=== PATIENT | female | born 1975 | race Hispanic/Latino ===

== ENCOUNTER → 2018-11-14 | Day surgery (SDC) | payer OTHER ==
[~2018-11-14] MED LIST: AMBIEN5 MG PO; BACITRACIN 50,000 UNIT VIAL ONE; BUPIVACAINE HCL 0.5% INJ 30 ML VIAL INJ ONE; CEFAZOLIN SOD 2 GM/D5W 50ML 50 ML IV ONE; DEXAMETHASONE SOD PHOS INJ 4 MG/ML VIAL ONE; EPHEDRINE SULFATE INJ 50 MG/10 ML SYR ONE; FENTANYL CITRATE/PF 100MCG/2 ML INJ ONE; HYDROMORPHONE 2MG/ML 2 MG/ML ML ONE; KETOROLAC TROMETHAMINE 30 MG/ML VIAL ONE; LEVOTHYROXINE112 MCG PO; LIDOCAINE HCL 2% LOCAL INJ 5 ML SDV VIAL INJ ONE; MIDAZOLAM HCL 2 MG/2 ML VIAL ONE; MORPHINE SULFATE INJ 10 MG/ML ONE; NEOSTIGMINE 1 MG/ML 10ML VIAL ONE; ONDANSETRON HCL INJ 2MG/ML 2ML 2 MG/ML VIAL ONE; PROPOFOL IV EMULSION 10 MG/ML 20 ML VIAL ONE; SEVOFLURANE INHAL SOLN 250 ML PEN BTL ONE; SUMATRIPTAN INJ; SUMATRIPTAN20 MG INJ
--- OUTSIDE RECORDS SUMMARY | 2018-11-14 08:02 | XMS REPORT | Clinical Summary ---
Author Author [facility] Organization [facility] Address Unknown Phone Unavailable Care Team Providers Care Network Systems Operator Name Role Phone Kristen Mccoy DO PCP Allergies No Known Allergies Medications End Date Status Medication Sig Dispensed Refills Start Date Active levothyroxine (SYNTHROID, TAKE 1 TABLET 1 LEVOXYL) 200 mcg tablet BY MOUTH ON 7 EMPTY STOMACH IN THE MORNING MON-FRI, AND 2 TABLETS BY MOUTH ON SAT-SUN Active eletriptan (RELPAX) 40 MG TAKE 1 TABLET 6 tablet BY MOUTH ONCE 7 A DAY NEEDED Active Problems Problem Noted Date Prepatellar bursitis of right knee 08/10/2017 Patellar bursitis, right 08/09/2017 Acute pain of right knee 08/09/2017 Family History Medical History Relation Name Comments Cancer Father Heart disease Father Cancer Mother Relation Name Status Comments Father Mother Social History Date Tobacco Use Types Packs/Day Years Used Never Smoker Smokeless Tobacco: Never Used Sex Assigned at Date Recorded Not on file Industry Job Start Date Occupation Not on file Not on file Not on file Travel End Travel History Travel Start No recent travel history available. Last Filed Vital Signs Not on file Plan of Treatment Health Maintenance Due Date Last Done Comments CERVICAL CANCER SCREENING 1995 INFLUENZA VACCINE 02/22/2019 Results Not on fileafter 11/13/2017 Insurance Payer Benefit Subscriber ID Type Phone Address Plan / Group [facility] xxxxxxxxx HMO/PPO THCARE CHOICE/CHO ICE + Advance Directives Patient has advance care planning documents on file. For more information, roldan beckett contact: Porfirio Smalls [address] [place] [place] [address]
--- OUTSIDE RECORDS SUMMARY | 2018-11-14 08:03 | XMS REPORT | Summary of Care ---
Author Organization Unknown Address Unknown Phone Unavailable Encounter [facility] Encntr_yvonne(FIN) [id number] Date(s): 01/07/15 - 01/07/15 [facility] [address] [place] [address]- [phone] Discharge Disposition: Home Physician Attending: Tabitha Martinez MD Physician_Referring: Tabitha Martinez MD Vital Signs No data available for this section Problem List Condition Effective Dates Status Health Status Informant Hypothyroid(Confirme Resolved d) Stones common Resolved duct(Confirmed) Allergies, Adverse Reactions, Alerts Substance Reaction Severity Status NKDA Active Medications No data available for this section Results No data available for this section Immunizations No data available for this section Procedures Procedure Date Related Diagnosis Body Site Cholecystectomy Excision of calcaneal spur Social History Social History Type Response Smoking Status Never smoker; Exposure to Tobacco Smoke None; Cigarette Smoking Last 365 Days No; Reg Smoking Cessation Counseling No Assessment and Plan No data available for this section
--- OUTSIDE RECORDS SUMMARY | 2018-11-14 08:03 | XMS REPORT | Summary of Care ---
Author Author [facility] Organization [facility] Address Unknown Phone Unavailable Encounter JOCELINE Schaefer(DELANEY) [id number] Date(s): 02/18/15 - 02/19/15 [facility] [address] [place] [address]- Discharge Disposition: Home Attending Physician: Christiano Nieves MD Admitting Physician: Christiano Nieves MD Referring Physician: Christiano Nieves MD Vital Signs 1 2 3 Most recent to oldest [Reference Range]: 170.18 cm (02/18/15 2:30 PM) 170.18 cm (02/17/15 10:10 AM) Height 1 2 3 Most recent to oldest [Reference Range]: 98.2 DegF (02/19/15 12:28 PM) 98.7 DegF (02/19/15 7:50 AM) 98.5 DegF (02/19/15 3:42 AM) Temperature Oral [96.4-99.1 DegF] 1 2 3 Most recent to oldest [Reference Range]: 119/79 mmHg (02/19/15 12:28 PM) 121/81 mmHg (02/19/15 7:50 AM) 117/79 mmHg (02/19/15 3:42 AM) Blood Pressure [90-140/60-90 mmHg] 1 2 3 Most recent to oldest [Reference Range]: 16 BRMIN (02/19/15 12:28 PM) 14 BRMIN (02/19/15 9:11 AM) 14 BRMIN (02/19/15 7:50 AM) Respiratory Rate [14-20 BRMIN] 1 2 3 Most recent to oldest [Reference Range]: 99 bpm (02/19/15 12:28 PM) 103 bpm *HI* (02/19/15 7:50 AM) 109 bpm *HI* (02/19/15 3:42 AM) Peripheral Pulse Rate [60-100 bpm] 1 2 3 Most recent to oldest [Reference Range]: 137.273 kg (02/18/15 2:30 PM) 135.199 kg (02/17/15 10:10 AM) Weight 1 2 3 Most recent to oldest [Reference Range]: 47.4 m2 (02/18/15 2:30 PM) 46.68 m2 (02/17/15 10:10 AM) Body Mass Index Problem List Condition Effective Dates Status Health Status Informant Acid Active reflux(Confirmed) Apnea, Resolved sleep(Confirmed) HLD Resolved (hyperlipidemia)(Con firmed) Hypothyroid(Confirme Resolved d) Obesity(Confirmed) Active Sleep Active apnea(Confirmed) Stones common Resolved duct(Confirmed) Allergies, Adverse Reactions, Alerts Substance Reaction Severity Status NKDA Active Medications acetaminophen 650 mg, 1 supp, Route: IA, Drug form: SUPP, Q4H, Dosing Weight 135.199, kg, PRN For Temp > 101 F, Start date: 02/18/15 12:22:00, Duration: 30 day, Stop date: 03/20/15 12:21:00, for temp > 101.5 Notes: Max vdmtryjwdoplx=2529 mg/day (4 gm/day). (Same as: Tylenol) Start Date: 02/18/15 Stop Date: 02/19/15 Status: Discontinued acetaminophen-codeine 120 mg-12 mg/5 mL oral liquid 15 ml, PO, Q4H, PRN Pain, X 10 day, # 480 mL, 0 Refill(s) Start Date: 02/19/15 Stop Date: 03/01/15 Status: Ordered acetaminophen-hydrocodone 300 mg-10 mg/15 mL oral liquid 15 mL, Route: PO, Drug Form: SOLN, Dosing Weight 135.199, kg, Q4H, PRN Pain Scor e 4-6, Start date: 02/18/15 12:22:00, Duration: 30 day, Stop date: 03/20/15 12:2 1:00 Notes: Do not exceed 4gm/day of acetaminophen. (Same as: Zolvit) Start Date: 02/18/15 Stop Date: 02/19/15 Status: Discontinued Ancef 2 gm, Route: IVPB, ONCE, Dosing Weight 135.199, kg, Start date: 02/18/15 9:25:00 , Duration: 1 doses or times, Stop date: 02/18/15 9:25:00 Start Date: 02/18/15 Stop Date: 02/18/15 Status: Completed Ancef 1 gm, Route: IVPB, ONCE, Dosing Weight 135.199, kg, Start date: 02/18/15 11:40:0 0, Duration: 1 doses or times, Stop date: 02/18/15 11:40:00 Start Date: 02/18/15 Stop Date: 02/18/15 Status: Completed Ativan 1 mg, 0.5 mL, Route: IVP, Drug form: INJ, ONCE, Dosing Weight 137.273, kg, Start date: 02/19/15 0:33:00, Stop date: 02/19/15 0:33:00 Notes: (Same as: Ativan) Start Date: 02/19/15 Stop Date: 02/19/15 Status: Completed Carafate 1 g/10 mL oral suspension 1 gm=10 ml, PO, Before Meals & Bedtime, # 200 ml, 0 Refill(s) Start Date: 02/19/15 Status: Ordered ceFAZolin (SCIP) 2 gm, 100 mL, Route: IVPB, Drug form: INJ, ABXQ8H, Dosing Weight 135.199, kg, St art date: 02/18/15 19:00:00, Duration: 1 doses or times, Stop date: 02/18/15 19: 00:00 Notes: Same as: Ancef Start Date: 02/18/15 Stop Date: 02/18/15 Status: Completed famotidine 20 mg, 2 mL, Route: IVP, Drug form: INJ, Q12H, Dosing Weight 135.199, kg, Start date: 02/18/15 21:00:00, Duration: 30 day, Stop date: 03/20/15 9:00:00 Notes: (Same as: Pepcid)Can be dilute in 5-10cc NS IVP: Slow IV push over at le ast 2 minutes. Start Date: 02/18/15 Stop Date: 02/19/15 Status: Discontinued heparin 5000 units/mL injectable solution 5,000 unit, 1 mL, Route: SUB-Q, Drug form: INJ, ONCE, Dosing Weight 135.199, kg, Start date: 02/18/15 9:25:00, Stop date: 02/18/15 9:25:00 Notes: porcine heparin Start Date: 02/18/15 Stop Date: 02/19/15 Status: Completed Lactated Ringers Injection IV 1,000 mL 1,000 mL, Rate: 25 ml/hr, Infuse over: 40 hr, Route: IV, Dosing Weight 135.199 k g, Total Volume: 1,000, Start date: 02/17/15 13:55:00, Duration: 2 day, Stop sonal e: 02/19/15 13:54:00 Start Date: 02/17/15 Stop Date: 02/18/15 Status: Discontinued Lactated Ringers Injection IV 1,000 mL 1,000 mL, Rate: 125 ml/hr, Infuse over: 8 hr, Route: IV, Dosing Weight 135.199 k g, Total Volume: 1,000, Start date: 02/18/15 12:22:00, Duration: 30 day, Stop da te: 03/20/15 12:21:00 Start Date: 02/18/15 Stop Date: 02/19/15 Status: Discontinued LR IV 1,000 mL 1,000 mL, Rate: 125 ml/hr, Infuse over: 8 hr, Route: IV, Dosing Weight 135.199 k g, Total Volume: 1,000, Start date: 02/18/15 12:22:00, Duration: 30 day, Stop da te: 03/20/15 12:21:00 Start Date: 02/18/15 Stop Date: 02/19/15 Status: Discontinued metoclopramide 10 mg, 2 mL, Route: IVP, Drug form: INJ, Q6H, Dosing Weight 135.199, kg, Start d ate: 02/18/15 18:00:00, Duration: 30 day, Stop date: 03/20/15 12:00:00 Notes: (Same as: Anicetolan) Start Date: 02/18/15 Stop Date: 02/19/15 Status: Discontinued morphine 1 mg/ml MIXER OPERATOR RAW SALT (30 mg/30 mL) INJ Syringe 30 mg 30 mg, 30 mL, Route: IV, Initial Loading Dose: 2 mg, MIXER OPERATOR RAW SALT Dose: 1 mg, MIXER OPERATOR RAW SALT Lockou t: 10 minutes, Continuous Basal Rate: 0 mg, 4 Hour Limit (In MG): 20, Drug Form: INJ, Continuous, Discontinue after tolerating sugar free clear liquid diet in a m., Start d... Notes: Dose: Delay: Basal rate: 4hr limit:( Same as:Pk) Start Date: 02/18/15 Stop Date: 02/19/15 Status: Discontinued naloxone 0.04 mg, 0.04 mL, Route: IVP, Drug form: INJ, Q2MIN, Dosing Weight 135.199, kg, PRN Narcotic Reversal, Start date: 02/18/15 12:22:00, Duration: 30 day, Stop sonal e: 03/20/15 12:21:00 Notes: (Same as: Narcan) MEDICATION WASTE Product Size: 2 mgProduct Was liliane: ___ mg Start Date: 02/18/15 Stop Date: 02/19/15 Status: Discontinued ondansetron 4 mg, 2 mL, Route: IVP, Drug form: INJ, Q12H, Dosing Weight 135.199, kg, PRN Luan sea & Vomiting, Start date: 02/18/15 12:22:00, Duration: 30 day, Stop date: 03/20/15 12:21:00 Notes: (Same as: Zofran) MEDICATION WASTE Product Size: 4 mgProduct Was liliane: ___ mg Start Date: 02/18/15 Stop Date: 02/19/15 Status: Discontinued pantoprazole 40 mg, Route: IVP, Drug form: INJ, Q12H, Dosing Weight 135.199, kg, Start date: 02/18/15 21:00:00, Duration: 30 day, Stop date: 03/20/15 9:00:00 Notes: For IV push reconstitute with 10 ml 0.9% sodium chloride and push over 2 minutes. (Same as: Protonix) Start Date: 02/18/15 Stop Date: 02/19/15 Status: Discontinued Phenergan 25 mg oral tablet 25 mg=1 tab, PO, Q6H, PRN Nausea, X 4 day, # 15 tab, 0 Refill(s) Start Date: 02/19/15 Stop Date: 02/23/15 Status: Ordered pneumococcal 23-valent vaccine 0.5 mL, Route: IM, Drug Form: INJ, Daily, Start date: 02/19/15 9:00:00, Duration : 1 doses or times, Stop date: 02/19/15 9:00:00 Notes: (Same as: Pneumovax 23) Refrigerate Start Date: 02/19/15 Stop Date: 02/19/15 Status: Completed promethazine 12.5 mg, 0.5 mL, Route: IM, Drug form: INJ, Q4H, Dosing Weight 135.199, kg, PRN Nausea & Vomiting, Start date: 02/18/15 12:22:00, Duration: 30 day, Stop date: 03/20/15 12:21:00 Notes: Do not give IV push. (Same as: Phenergan) Start Date: 02/18/15 Stop Date: 02/19/15 Status: Discontinued sucralfate 1 g/10 mL oral suspension 1 gm, 10 mL, Route: PO, Drug form: SUSP, Q6H, Dosing Weight 135.199, kg, Start d ate: 02/20/15 18:00:00, Duration: 30 day, Stop date: 03/22/15 12:00:00 Notes: Enteral feeds may interfere with the absorption of this medication. Ankit e well. Take 1 hr before or 2 hrs after antacids, dairy pdt, minerals & meals. (Same As: Carafate) Start Date: 02/20/15 Stop Date: 02/19/15 Status: Canceled Vasotec 1.25 mg, 1 mL, Route: IVP, Drug form: INJ, Q6H, Dosing Weight 135.199, kg, PRN E levated BP, Start date: 02/18/15 12:22:00, Duration: 30 day, Stop date: 03/20/15 12:21:00, sbp>160 or dbp>95 Notes: (Same as: Vasotec-IV) Start Date: 02/18/15 Stop Date: 02/19/15 Status: Discontinued Results BLOOD BANK RESULTS Most recent to 1 2 oldest [Reference Range]: ABO/Rh A POS *Unknown* (02/17/15 10:37 AM) Antibody Scrn Negative (02/17/15 10:37 AM) ELECTROLYTES Most recent to 1 2 oldest [Reference Range]: Sodium Lvl [135-145 133 mEq/L 139 mEq/L mEq/L] *LOW* (02/17/15 10:37 AM) (02/19/15 5:25 AM) Potassium Lvl 3.9 mEq/L 3.4 mEq/L [3.5-5.1 mEq/L] (02/19/15 5:25 AM) *LOW* (02/17/15 10:37 AM) Chloride Lvl [95-109 99 mEq/L 104 mEq/L mEq/L] (02/19/15 5:25 AM) (02/17/15 10:37 AM) CO2 [24-32 mEq/L] 25 mEq/L 27 mEq/L (02/19/15 5:25 AM) (02/17/15 10:37 AM) AGAP [10.0-20.0 12.9 mEq/L 11.4 mEq/L mEq/L] (02/19/15 5:25 AM) (02/17/15 10:37 AM) CHEM PANEL Most recent to 1 2 oldest [Reference Range]: Creatinine Lvl 0.7 mg/dL 0.8 mg/dL [0.5-1.4 mg/dL] (02/19/15 5:25 AM) (02/17/15 10:37 AM) eGFR 109 mL/min/1.73m2 1 93 mL/min/1.73m2 2 *NA* *NA* (02/19/15 5:25 AM) (02/17/15 10:37 AM) BUN [7-22 mg/dL] 5 mg/dL 9 mg/dL *LOW* (02/17/15 10:37 AM) (02/19/15 5:25 AM) B/C Ratio [6-25] 11 (02/17/15 10:37 AM) Glucose Lvl [70-99 108 mg/dL 84 mg/dL mg/dL] *HI* (02/17/15 10:37 AM) (02/19/15 5:25 AM) Total Protein 7.4 g/dL [6.4-8.4 g/dL] (02/17/15 10:37 AM) Albumin Lvl [3.5-5.0 3.7 g/dL g/dL] (02/17/15 10:37 AM) Globulin [2.0-4.0 3.7 g/dL g/dL] (02/17/15 10:37 AM) A/G Ratio [0.7-1.6] 1.0 (02/17/15 10:37 AM) Calcium Lvl 8.5 mg/dL 8.3 mg/dL [8.5-10.5 mg/dL] (02/19/15 5:25 AM) *LOW* (02/17/15 10:37 AM) ALT [0-65 unit/L] 34 unit/L (02/17/15 10:37 AM) AST [0-37 unit/L] 16 unit/L (02/17/15 10:37 AM) Alk Phos [39-136 73 unit/L unit/L] (02/17/15 10:37 AM) Bili Total [0.2-1.3 0.6 mg/dL mg/dL] (02/17/15 10:37 AM) 1Result Comment: The eGFR is calculated using the CKD-EPI formula. In most young, healthy individuals the eGFR will be >90 mL/min/1.73m2. The eGFR declines with age. An eGFR of 60-89 may be normal in some populations, particularly the elderly, for whom the CKD-EPI formula has not been extensively validated. Use of the eGFR is not recommended in the following populations: Individuals with unstable creatinine concentrations, including patients and those with serious co-morbid conditions. Patients with extremes in muscle mass or diet. The data above are obtained from the National Kidney Disease Education Program ( NKDEP) which additionally recommends that when the eGFR is used in patients with extremes of body mass index for purposes of drug dosing, the eGFR should be mul tiplied by the estimated BMI. 2Result Comment: The eGFR is calculated using the CKD-EPI formula. In most young, healthy individuals the eGFR will be >90 mL/min/1.73m2. The eGFR declines with age. An eGFR of 60-89 may be normal in some populations, particularly the elderly, for whom the CKD-EPI formula has not been extensively validated. Use of the eGFR is not recommended in the following populations: Individuals with unstable creatinine concentrations, including patients and those with serious co-morbid conditions. Patients with extremes in muscle mass or diet. The data above are obtained from the National Kidney Disease Education Program ( NKDEP) which additionally recommends that when the eGFR is used in patients with extremes of body mass index for purposes of drug dosing, the eGFR should be mul tiplied by the estimated BMI. ENDOCRINOLOGY Most recent to 1 2 oldest [Reference Range]: S Preg [Negative] Negative *NA* (02/17/15 10:37 AM) URINE AND STOOL Most recent to 1 2 oldest [Reference Range]: UA Turbidity [Clear] Clear (02/17/15 10:37 AM) UA Color [Yellow] Yellow *NA* (02/17/15 10:37 AM) UA pH [5.0-8.0] 6.0 (02/17/15 10:37 AM) UA Spec Grav 1.018 [<=1.030] (02/17/15 10:37 AM) UA Glucose [Negative Negative mg/dL mg/dL] *NA* (02/17/15 10:37 AM) UA Blood [Negative] Negative (02/17/15 10:37 AM) UA Ketones [Negative Negative mg/dL mg/dL] *NA* (02/17/15 10:37 AM) UA Protein [Negative Negative mg/dL mg/dL] (02/17/15 10:37 AM) UA Urobilinogen 4.0 mg/dL [0.1-1.0 mg/dL] *HI* (02/17/15 10:37 AM) UA Bili [Negative] Negative *NA* (02/17/15 10:37 AM) UA Leuk Est Negative [Negative] (02/17/15 10:37 AM) UA Nitrite Negative [Negative] (02/17/15 10:37 AM) UA WBC [0-5 /HPF] 3 /HPF (02/17/15 10:37 AM) UA RBC [0-2 /HPF] 4 /HPF *HI* (02/17/15 10:37 AM) UA Sq Epi [Few /LPF] Occasional /LPF *NA* (02/17/15 10:37 AM) UA Mucus [None Seen Many /LPF /LPF] *ABN* (02/17/15 10:37 AM) HEMATOLOGY Most recent to 1 2 oldest [Reference Range]: WBC [3.7-10.4 K/CMM] 13.7 K/CMM 7.3 K/CMM *HI* (02/17/15 10:37 AM) (02/19/15 5:25 AM) RBC [4.20-5.40 3.57 M/CMM 4.01 M/CMM M/CMM] *LOW* *LOW* (02/19/15 5:25 AM) (02/17/15 10:37 AM) Hgb [12.0-16.0 g/dL] 12.0 g/dL 13.0 g/dL (02/19/15 5:25 AM) (02/17/15 10:37 AM) Hct [36.0-48.0 %] 33.7 % 37.8 % *LOW* (02/17/15 10:37 AM) (02/19/15 5:25 AM) MCV [80.0-98.0 fL] 94.4 fL 94.3 fL (02/19/15 5:25 AM) (02/17/15 10:37 AM) MCH [27.0-31.0 pg] 33.6 pg 32.5 pg *HI* *HI* (02/19/15 5:25 AM) (02/17/15 10:37 AM) MCHC [32.0-36.0 35.6 g/dL 34.4 g/dL g/dL] (02/19/15 5:25 AM) (02/17/15 10:37 AM) RDW [11.5-14.5 %] 12.6 % 12.6 % (02/19/15 5:25 AM) (02/17/15 10:37 AM) Platelet [133-450 231 K/CMM 241 K/CMM K/CMM] (02/19/15 5:25 AM) (02/17/15 10:37 AM) MPV [7.4-10.4 fL] 8.1 fL 7.8 fL (02/19/15 5:25 AM) (02/17/15 10:37 AM) Segs [45.0-75.0 %] 80.2 % 49.7 % *HI* (02/17/15 10:37 AM) (02/19/15 5:25 AM) Lymphocytes 11.0 % 36.9 % [20.0-40.0 %] *LOW* (02/17/15 10:37 AM) (02/19/15 5:25 AM) Monocytes [2.0-12.0 8.7 % 11.2 % %] (02/19/15 5:25 AM) (02/17/15 10:37 AM) Eosinophils [0.0-4.0 1.7 % %] (02/17/15 10:37 AM) Basophils [0.0-1.0 0.1 % 0.5 % %] (02/19/15 5:25 AM) (02/17/15 10:37 AM) Segs-Bands # 11.0 K/CMM 3.6 K/CMM [1.5-8.1 K/CMM] *HI* (02/17/15 10:37 AM) (02/19/15 5:25 AM) Lymphocytes # 1.5 K/CMM 2.7 K/CMM [1.0-5.5 K/CMM] (02/19/15 5:25 AM) (02/17/15 10:37 AM) Monocytes # [0.0-0.8 1.2 K/CMM 0.8 K/CMM K/CMM] *HI* (02/17/15 10:37 AM) (02/19/15 5:25 AM) Eosinophils # 0.1 K/CMM [0.0-0.5 K/CMM] (02/17/15 10:37 AM) PT [12.0-14.7 13.2 seconds seconds] (02/17/15 10:37 AM) INR [0.85-1.17] 1.00 (02/17/15 10:37 AM) PTT [22.9-35.8 32.3 seconds seconds] (02/17/15 10:37 AM) Immunizations Vaccine Date Refusal Reason pneumococcal 23-valent vaccine 02/19/15 Procedures Procedure Date Related Diagnosis Body Site Cholecystectomy Excision of calcaneal spur Operation Social History Social History Type Response Substance Abuse Use: None. Alcohol Current, Type Beer, Wine. Frequency: 1-2 times per month. Smoking Status Former smoker; Exposure to Tobacco Smoke None; Cigarette Smoking Last 365 Days No; Reg Smoking Cessation Counseling No Assessment and Plan Extracted from: Title: POD#1 Author: Christiano Nieves MD Date: 02/19/15 POD#1: ALERT, ORIENTED, NO C/O. AMBULATORY, TOLERATING CLEAR LIQUID DIET. BARIUM SWALLOW IS NORMAL. PE: ABDOMEN IS SOFT BOWEL S (+). LUNGS ARE CLEAR HALIE. GENERAL CONDITIONS ARE SATISFACTORY. PLAN: DISCHARGE HOME IF CONTINUE TO TOLERATE CLEAR LIQUID DIET.
--- OUTSIDE RECORDS SUMMARY | 2018-11-14 08:03 | XMS REPORT | Summary of Care ---
Author Organization Unknown Address Unknown Phone Unavailable Encounter JOCELINE Schaefer(DELANEY) [id number] Date(s): 04/23/14 - 04/23/14 [facility] [address] [place], [place] [id number] [place] [address] Discharge Diagnosis: Foreign body, swallowed Discharge Disposition: Home Physician Attending: Enid Hamilton DO Reason for Visit OBJECT SWALLOWED Vital Signs Most recent to 1 2 oldest [Reference Range]: Height 170.18 cm (04/23/14 8:10 AM) Temperature Oral 98.2 DegF 98.2 DegF [96.4-99.1 DegF] (04/23/14 10:31 AM) (04/23/14 8:10 AM) Systolic Blood 112 mmHg 118 mmHg Pressure [90-140 (04/23/14 10:31 AM) (04/23/14 8:10 AM) mmHg] Diastolic Blood 60 mmHg 79 mmHg Pressure [60-90 (04/23/14 10:31 AM) (04/23/14 8:10 AM) mmHg] Respiratory Rate 18 BRMIN 16 BRMIN [14-20 BRMIN] (04/23/14 10:31 AM) (04/23/14 8:10 AM) Peripheral Pulse 68 bpm 76 bpm Rate [60-100 bpm] (04/23/14 10:31 AM) (04/23/14 8:10 AM) Weight 133.182 kg (04/23/14 8:10 AM) Body Mass Index 45.99 m2 (04/23/14 8:10 AM) Problem List Condition Effective Dates Status Health Status Informant Stones common Resolved duct(Confirmed) Allergies, Adverse Reactions, Alerts Substance Reaction Severity Status NKDA Active Medications Maalox Advanced Regular Strength SUSP 30 mL, Route: PO, Drug Form: SUSP, Dosing Weight 133.182, kg, ONCE, STAT, Start date: 04/23/14 9:56:00, Stop date: 04/23/14 9:56:00 Start Date: 04/23/14 Stop Date: 04/23/14 Status: Completed Magic Mouth Wash (Maalox/Carafate/Bendryl)1:1:1 5 ml, S&SWALLOW, QID, THROAT PAIN, # 120 mL, 0 Refill(s) Start Date: 04/23/14 Status: Ordered Medications Administered During Your Visit No data available for this section Immunizations No data available for this section
--- OUTSIDE RECORDS SUMMARY | 2018-11-14 08:03 | XMS REPORT | Summary of Care ---
Author Author [facility] Address Unknown Phone Unavailable Encounter JOCELINE Schaefer(DELANEY) [id number] Date(s): 03/02/16 - 03/31/16 [facility] Discharge Disposition: Home or Self Care Attending Physician: Katharine Lewis DO Vital Signs No data available for this [...] No data available for this section Immunizations Given and Recorded Vaccine Date Status Refusal Reason pneumococcal 23-valent vaccine 02/19/15 Given Procedures Procedure Date Related Diagnosis Body Site [...]
--- OUTSIDE RECORDS SUMMARY | 2018-11-14 08:03 | XMS REPORT | Summary of Care ---
Author Organization Unknown Address Unknown Phone Unavailable Encounter [facility] Encntr_yvonne(FIN) [id number] Date(s): 10/29/14 - 10/29/14 [facility] [address] [place] [address]- Discharge Disposition: Home Physician Attending: Kristen Mccoy DO Physician_Referring: Kristen Mccoy DO Vital Signs No data available for [...]
--- OUTSIDE RECORDS SUMMARY | 2018-11-14 08:03 | XMS REPORT | Summary of Care ---
Author Organization Unknown Address Unknown Phone Unavailable Encounter HQ Silvano(DELANEY) [id number] Date(s): 04/24/14 - 04/24/14 [facility] [address] [place], [place] [id number] [place] [address] Discharge Disposition: Home Physician Attending: Joseph Hodges MD Physician Admitting: Joseph Hodges MD Physician_Referring: Joseph Hodges MD Reason for Visit 787.29 Vital Signs 1 2 3 Most recent to oldest [Reference Range]: 170.18 cm (04/24/14 5:20 PM) Height 148 mmHg *HI* (04/24/14 6:20 PM) 148 mmHg *HI* (04/24/14 6:05 PM) 143 mmHg *HI* (04/24/14 5:50 PM) Systolic Blood Pressure [90-140 mmHg] 64 mmHg (04/24/14 6:20 PM) 68 mmHg (04/24/14 6:05 PM) 84 mmHg (04/24/14 5:50 PM) Diastolic Blood Pressure [60-90 mmHg] 18 BRMIN (04/24/14 6:20 PM) 18 BRMIN (04/24/14 6:05 PM) 18 BRMIN (04/24/14 5:50 PM) Respiratory Rate [14-20 BRMIN] 132.727 kg (04/24/14 5:20 PM) Weight 45.83 m2 (04/24/14 5:20 PM) Body Mass Index Problem List Condition Effective Dates Status Health Status Informant Stones common Resolved duct(Confirmed) Allergies, Adverse Reactions, Alerts Substance Reaction Severity Status NKDA Active Medications flumazenil 0.1 mg, Route: IVP, Q5Min, Dosing Weight 132.727, kg, PRN Other -See [facility] [place] art date: 04/24/14 18:00:00, Duration: 30 day, Stop date: 05/24/14 17:59:00 Start Date: 04/24/14 Stop Date: 04/24/14 Status: Discontinued flumazenil 0.2 mg, Route: IVP, PRN, Dosing Weight 132.727, kg, PRN Other -See Comment, Star t date: 04/24/14 18:00:00, Duration: 1 doses or times, Stop date: Limited # of t imes Start Date: 04/24/14 Stop Date: 04/24/14 Status: Discontinued naloxone 0.1 mg, Route: IVP, Q2MIN, Dosing Weight 132.727, kg, PRN Narcotic Reversal, Sta rt date: 04/24/14 18:00:00, Duration: 4 doses or times, Stop date: Limited # of times Start Date: 04/24/14 Stop Date: 04/24/14 Status: Discontinued Sodium Chloride 0.9% IV 1000 mL 1,000 mL, Rate: 25 ml/hr, Infuse over: 40 hr, Route: IV, Dosing Weight 133.182 k g, Total Volume: 1,000, Start date: 04/24/14 17:20:00, Duration: 30 day, Stop da te: 05/24/14 17:19:00 Start Date: 04/24/14 Stop Date: 04/24/14 Status: Discontinued Synthroid 200 mcg (0.2 mg) oral tablet 200 microgram=1 tab, PO, Daily, # 30 tab, 0 Refill(s) Start Date: 04/24/14 Status: Ordered Results URINE CHEM Most recent to 1 oldest [Reference Range]: U Preg [Negative] Negative (04/24/14 5:22 PM) Medications Administered During Your Visit No data available for this section Immunizations No data available for this section Procedures Procedure Type Body Site Date of Procedure Related Diagnosis Cholecystectomy Excision of calcaneal spur
--- OUTSIDE RECORDS SUMMARY | 2018-11-14 08:03 | XMS REPORT | Summary of Care ---
Author Organization Unknown Address Unknown Phone Unavailable Encounter JOCELINE Schaefer(DELANEY) [id number] Date(s): 10/31/14 - 10/31/14 [facility] [address] [place] [address]- [phone] Discharge Diagnosis: Edema, peripheral Discharge Disposition: Home Physician Attending: Jeff Garrett MD Vital Signs 1 2 3 Most recent to oldest [Reference Range]: 167.64 cm (10/31/14 3:25 PM) Height 98.1 DegF (10/31/14 8:07 PM) 98.1 DegF (10/31/14 6:57 PM) 98.0 DegF (10/31/14 3:25 PM) Temperature Oral [96.4-99.1 DegF] 117/79 mmHg (10/31/14 8:07 PM) 135/90 mmHg (10/31/14 3:25 PM) Blood Pressure [90-140/60-90 mmHg] 118 mmHg (10/31/14 6:57 PM) Systolic Blood Pressure [90-140 mmHg] 80 mmHg (10/31/14 6:57 PM) Diastolic Blood Pressure [60-90 mmHg] 16 BRMIN (10/31/14 8:07 PM) 16 BRMIN (10/31/14 6:57 PM) 16 BRMIN (10/31/14 3:25 PM) Respiratory Rate [14-20 BRMIN] 81 bpm (10/31/14 8:07 PM) 82 bpm (10/31/14 6:57 PM) 86 bpm (10/31/14 3:25 PM) Peripheral Pulse Rate [60-100 bpm] 139.545 kg (10/31/14 3:25 PM) Weight 49.65 m2 (10/31/14 3:25 PM) Body Mass Index Problem List Condition Effective Dates Status Health Status Informant Hypothyroid(Confirme Resolved d) Stones common Resolved duct(Confirmed) Allergies, Adverse Reactions, Alerts Substance Reaction Severity Status NKDA Active Medications No data available for this section Results ELECTROLYTES Most recent to 1 oldest [Reference Range]: Sodium Lvl [135-145 140 mEq/L mEq/L] (10/31/14 4:46 PM) Potassium Lvl 4.1 mEq/L [3.5-5.1 mEq/L] (10/31/14 4:46 PM) Chloride Lvl [95-109 106 mEq/L mEq/L] (10/31/14 4:46 PM) CO2 [24-32 mEq/L] 29 mEq/L (10/31/14 4:46 PM) AGAP [10.0-20.0 9.1 mEq/L mEq/L] *LOW* (10/31/14 4:46 PM) CHEM PANEL Most recent to 1 oldest [Reference Range]: Creatinine Lvl 0.8 mg/dL [0.5-1.4 mg/dL] (10/31/14 4:46 PM) eGFR 93 mL/min/1.73m2 1 *NA* (10/31/14 4:46 PM) BUN [7-22 mg/dL] 12 mg/dL (10/31/14 4:46 PM) B/C Ratio [6-25] 15 (10/31/14 4:46 PM) Glucose Lvl [70-99 77 mg/dL 2 mg/dL] (10/31/14 4:46 PM) Total Protein 7.4 g/dL [6.4-8.4 g/dL] (10/31/14 4:46 PM) Albumin Lvl [3.5-5.0 3.3 g/dL g/dL] *LOW* (10/31/14 4:46 PM) Globulin [2.0-4.0 4.1 g/dL g/dL] *HI* (10/31/14 4:46 PM) A/G Ratio [0.7-1.6] 0.8 (10/31/14 4:46 PM) Calcium Lvl 8.8 mg/dL [8.5-10.5 mg/dL] (10/31/14 4:46 PM) ALT [0-65 unit/L] 90 unit/L *HI* (10/31/14 4:46 PM) AST [0-37 unit/L] 60 unit/L *HI* (10/31/14 4:46 PM) Alk Phos [39-136 76 unit/L unit/L] (10/31/14 4:46 PM) Bili Total [0.2-1.3 0.2 mg/dL mg/dL] (10/31/14 4:46 PM) 1Result Comment: The eGFR is calculated using [...] be mul tiplied by the estimated BMI. 2Interpretive Data: Adult reference range values reflect the clinical guidelines of the [place] [employer]. THYROID PANEL Most recent to 1 oldest [Reference Range]: TSH [0.360-3.740 1.910 uIU/mL uIU/mL] (10/31/14 4:46 PM) HEMATOLOGY Most recent to 1 oldest [Reference Range]: WBC [3.7-10.4 K/CMM] 8.1 K/CMM (10/31/14 4:46 PM) RBC [4.20-5.40 3.87 M/CMM M/CMM] *LOW* (10/31/14 4:46 PM) Hgb [12.0-16.0 g/dL] 12.7 g/dL (10/31/14 4:46 PM) Hct [36.0-48.0 %] 36.9 % (10/31/14 4:46 PM) MCV [80.0-98.0 fL] 95.4 fL (10/31/14 4:46 PM) MCH [27.0-31.0 pg] 32.9 pg *HI* (10/31/14 4:46 PM) MCHC [32.0-36.0 34.5 g/dL g/dL] (10/31/14 4:46 PM) RDW [11.5-14.5 %] 12.8 % (10/31/14 4:46 PM) Platelet [133-450 239 K/CMM K/CMM] (10/31/14 4:46 PM) MPV [7.4-10.4 fL] 8.2 fL (10/31/14 4:46 PM) Segs [45.0-75.0 %] 51.1 % (10/31/14 4:46 PM) Lymphocytes 35.3 % [20.0-40.0 %] (10/31/14 4:46 PM) Monocytes [2.0-12.0 10.1 % %] (10/31/14 4:46 PM) Eosinophils [0.0-4.0 2.4 % %] (10/31/14 4:46 PM) Basophils [0.0-1.0 1.1 % %] *HI* (10/31/14 4:46 PM) Segs-Bands # 4.1 K/CMM [1.5-8.1 K/CMM] (10/31/14 4:46 PM) Lymphocytes # 2.9 K/CMM [1.0-5.5 K/CMM] (10/31/14 4:46 PM) Monocytes # [0.0-0.8 0.8 K/CMM K/CMM] (10/31/14 4:46 PM) Eosinophils # 0.2 K/CMM [0.0-0.5 K/CMM] (10/31/14 4:46 PM) Basophils # [0.0-0.2 0.1 K/CMM K/CMM] (10/31/14 4:46 PM) Immunizations No data available for this section Procedures Procedure Date Related Diagnosis Body Site Cholecystectomy Excision of calcaneal spur Social History Social History Type Response Smoking Status Never smoker; Exposure to Tobacco Smoke None; Cigarette Smoking Last 365 Days No; Reg Smoking Cessation Counseling No Assessment and Plan No data available for this section
--- OUTSIDE RECORDS SUMMARY | 2018-11-14 08:03 | XMS REPORT | Summary of Care ---
Author Author [facility] Organization [facility] Address Unknown Phone Unavailable Encounter JOCELINE Schaefer(DELANEY) [id number] Date(s): 03/07/15 - 03/07/15 [facility] [address] [place] [address]- Discharge Disposition: Home Attending Physician: Tabitha Martinez MD Admitting Physician: Tabitha Martinez MD Referring Physician: Tabitha Martinez MD Vital Signs Most recent to 1 oldest [Reference Range]: Height 170.18 cm (03/07/15 12:09 PM) Most recent to 1 oldest [Reference Range]: Weight 137 kg (03/07/15 12:09 PM) Most recent to 1 oldest [Reference Range]: Body Mass Index 47.3 m2 (03/07/15 12:09 PM) Problem List Condition Effective Dates Status Health Status Informant Acid Active reflux(Confirmed) Apnea, Resolved sleep(Confirmed) HLD Resolved (hyperlipidemia)(Con firmed) Hypothyroid(Confirme Resolved d) Obesity(Confirmed) Active Sleep Active apnea(Confirmed) Stones common Resolved duct(Confirmed) Allergies, Adverse Reactions, Alerts Substance Reaction Severity Status NKDA Active Medications No data available for this section Results ENDOCRINOLOGY Most recent to 1 oldest [Reference Range]: S Preg [Negative] Negative *NA* (03/07/15 12:14 PM) Immunizations Vaccine Date Refusal Reason pneumococcal 23-valent [...]
--- OUTSIDE RECORDS SUMMARY | 2018-11-14 08:03 | XMS REPORT | Summary of Care ---
Author Author [facility] Organization [facility] Address Unknown Phone Unavailable Encounter JOCELINE Schaefer(DELANEY) [id number] Date(s): 03/04/17 - 03/04/17 [facility] [address] [place] [address]- Discharge Disposition: Home or Self Care Attending Physician: Tabitha Martinez MD Referring Physician: Tabitha Martinez MD Vital Signs No data [...]
--- OUTSIDE RECORDS SUMMARY | 2018-11-14 08:03 | XMS REPORT | Summary of Care ---
Author Author [facility] Organization [facility] Address Unknown Phone Unavailable Encounter JOCELINE Schaefer(DELANEY) [id number] Date(s): 01/30/16 - 01/30/16 [facility] [address] [place] [address]- [phone] Discharge Disposition: Home Attending Physician: Tabitha Martinez MD Referring Physician: Frank Simon CUT OFF [employer] Vital Signs No data available for this [...]
--- OUTSIDE RECORDS SUMMARY | 2018-11-14 08:03 | XMS REPORT | Continuity of Care Document ---
Author Author [facility] Interface Address Unknown Phone Unavailable Problems Problem Status Onset Date Classification Date Reported Comments Source DX: ROUTINE SCREENING Active 01/28/2017 [facility] TUBAL LIGATION STATUS Active 02/28/2015 [facility] UNK Active 02/12/2015 [facility] OBESITY Active 02/12/2015 [facility] 530.81 Active 02/04/2015 [facility] ROUTINE Active 01/06/2015 [facility] Discharge Diagnosis: Edema, peripheral 10/31/2014 11/02/2014 [facility] LEG SWELLING Active 10/31/2014 [facility] LEG PAIN Active 10/29/2014 [facility] IRREGUALR PERIODS Active 07/30/2014 [facility] 787.29 Active 04/24/2014 [facility] Discharge Diagnosis: Foreign body, swallowed 04/23/2014 04/26/2014 [facility] OBJECT SWALLOWED Active 04/23/2014 [facility] 626.4 Active 04/11/2013 [facility] 626.4 IRREGULAR BLEEDING Active 12/06/2012 [facility] BREAST PAIN Active 06/08/2011 [facility] Acid reflux Active Problem 03/07/2017 [facility] Apnea, sleep Resolved Problem 03/07/2017 [facility] HLD (<span ID="[id number]">Confirmed</span>) Resolved Problem 03/07/2017 [facility] Hypothyroid Resolved Problem 03/07/2017 [facility] Obesity Active Problem 03/07/2017 [facility] Sleep apnea Active Problem 03/07/2017 [facility] Stones common duct Resolved Problem 03/07/2017 [facility] ESOPHAGEAL REFLUX Active [facility] MORBID OBESITY Active [facility] RT LATERAL EPICONDYLITIS Active [facility] Medications Medication Details Route Status Patient Instructions Ordering Provider Order Date Source Sucralfate 100 MG/ML Oral Suspension 1 gm, 10 mL, Route: PO, Drug form: SUSP, Q6H, Dosing Weight 135.199, kg, Start date: 02/20/15 18:00:00, Duration: 30 day, Stop date: 03/22/15 12:00:00Notes: Enteral feeds may interfere with the absorption of this medication. Shake well. Take 1 hr before or 2 hrs after antacids, dairy pdt, minerals & meals. (Same As: Carafate) No Longer Active 02/20/2015 [facility] Sucralfate 100 MG/ML Oral Suspension [Carafate] 1 gm=10 ml, PO, Before Meals & Bedtime, # 200 ml, 0 Refill(s) Active 02/19/2015 [facility] Acetaminophen 24 MG/ML / Codeine Phosphate 2.4 MG/ML Oral Solution 15 ml, PO, Q4H, PRN Pain, X 10 day, # 480 mL, 0 Refill(s) Active 02/19/2015 [facility] Promethazine Hydrochloride 25 MG Oral Tablet [Phenergan] 25 mg=1 tab, PO, Q6H, PRN Nausea, X 4 day, # 15 tab, 0 Refill(s) Active 02/19/2015 [facility] pneumococcal capsular polysaccharide type 1 vaccine / pneumococcal capsular polysaccharide type 10A vaccine / pneumococcal capsular polysaccharide type 11A vaccine / pneumococcal capsular polysaccharide type 12F vaccine / pneumococcal capsular polysacchar 0.5 mL, Route: IM, Drug Form: INJ, Daily, Start date: 02/19/15 9:00:00, Duration: 1 doses or times, Stop date: 02/19/15 9:00:00Notes: (Same as: Pneumovax 23) Refrigerate Inactive 02/19/2015 [facility] Ativan 1 mg, 0.5 mL, Route: IVP, Drug form: INJ, ONCE, Dosing Weight 137.273, kg, Start date: 02/19/15 0:33:00, Stop date: 02/19/15 0:33:00Notes: (Same as: Ativan) Inactive 02/19/2015 [facility] pantoprazole 40 mg, Route: IVP, Drug form: INJ, Q12H, Dosing Weight 135.199, kg, Start date: 02/18/15 21:00:00, Duration: 30 day, Stop date: 03/20/15 9:00:00Notes: For IV push reconstitute with 10 ml 0.9% sodium chloride and push over 2 minutes. (Same as: Protonix) No Longer Active 02/19/2015 [facility] Famotidine 20 mg, 2 mL, Route: IVP, Drug form: INJ, Q12H, Dosing Weight 135.199, kg, Start date: 02/18/15 21:00:00, Duration: 30 day, Stop date: 03/20/15 9:00:00Notes: (Same as: Pepcid) Can be dilute in 5-10cc NS IVP: Slow IV push over at least 2 minutes. No Longer Active 02/19/2015 [facility] ceFAZolin (SCIP) 2 gm, 100 mL, Route: IVPB, Drug form: INJ, ABXQ8H, Dosing Weight 135.199, kg, Start date: 02/18/15 19:00:00, Duration: 1 doses or times, Stop date: 02/18/15 19:00:00Notes: Same as: Ancef Inactive 02/19/2015 [facility] Metoclopramide 10 mg, 2 mL, Route: IVP, Drug form: INJ, Q6H, Dosing Weight 135.199, kg, Start date: 02/18/15 18:00:00, Duration: 30 day, Stop date: 03/20/15 12:00:00Notes: (Same as: Reglan) No Longer Active 02/18/2015 [facility] Morphine 30 mg, 30 mL, Route: IV, Initial Loading Dose: 2 mg, IS ANALYST Dose: 1 mg, IS ANALYST Lockout: 10 minutes, Continuous Basal Rate: 0 mg, 4 Hour Limit (In MG): 20, Drug Form: INJ, Continuous, Discontinue after tolerating sugar free clear liquid diet in am., Start d...Notes: Dose: Delay: Basal rate: 4hr limit: (Same as:Sulma-Jebarbi) No Longer Active 02/18/2015 [facility] Naloxone 0.04 mg, 0.04 mL, Route: IVP, Drug form: INJ, Q2MIN, Dosing Weight 135.199, kg, PRN Narcotic Reversal, Start date: 02/18/15 12:22:00, Duration: 30 day, Stop date: 03/20/15 12:21:00Notes: (Same as: Narcan) MEDICATION WASTE Product Size: 2 mg Product Wasted: ___ mg No Longer Active 02/18/2015 [facility] Vasotec 1.25 mg, 1 mL, Route: IVP, Drug form: INJ, Q6H, Dosing Weight 135.199, kg, PRN Elevated BP, Start date: 02/18/15 12:22:00, Duration: 30 day, Stop date: 03/20/15 12:21:00, sbp>160 or dbp>95Notes: (Same as: Vasotec-IV) No Longer Active 02/18/2015 [facility] LR IV 1,000 mL 1,000 mL, Rate: 125 ml/hr, Infuse over: 8 hr, Route: IV, Dosing Weight 135.199 kg, Total Volume: 1,000, Start date: 02/18/15 12:22:00, Duration: 30 day, Stop date: 03/20/15 12:21:00 No Longer Active 02/18/2015 [facility] Ondansetron 4 mg, 2 mL, Route: IVP, Drug form: INJ, Q12H, Dosing Weight 135.199, kg, PRN Nausea & Vomiting, Start date: 02/18/15 12:22:00, Duration: 30 day, Stop date: 03/20/15 12:21:00Notes: (Same as: Zofran) MEDICATION WASTE Product Size: 4 mg Product Wasted: ___ mg No Longer Active 02/18/2015 [facility] Promethazine 12.5 mg, 0.5 mL, Route: IM, Drug form: INJ, Q4H, Dosing Weight 135.199, kg, PRN Nausea & Vomiting, Start date: 02/18/15 12:22:00, Duration: 30 day, Stop date: 03/20/15 12:21:00Notes: Do not give IV p ush. (Same as: Phenergan) No Longer Active 02/18/2015 [facility] Acetaminophen 650 mg, 1 supp, Route: OR, Drug form: SUPP, Q4H, Dosing Weight 135.199, kg, PRN For Temp > 101 F, Start date: 02/18/15 12:22:00, Duration: 30 day, Stop date: 03/20/15 12:21:00, for temp > 101.5Notes: Max wmotgakiweapa=6801 mg/day (4 gm/day). (Same as: Tylenol) No Longer Active 02/18/2015 [facility] Acetaminophen 20 MG/ML / Hydrocodone Bitartrate 0.667 MG/ML Oral Solution 15 mL, Route: PO, Drug Form: SOLN, Dosing Weight 135.199, kg, Q4H, PRN Pain Score 4-6, Start date: 02/18/15 12:22:00, Duration: 30 day, Stop date: 03/20/15 12:21:00Notes: Do not exceed 4gm/day of acetaminophen. (Same as: Zolvit) No Longer Active 02/18/2015 [facility] Calcium Chloride 0.0014 MEQ/ML / Potassium Chloride 0.004 MEQ/ML / Sodium Chloride 0.103 MEQ/ML / Sodium Lactate 0.028 MEQ/ML Injectable Solution 1,000 mL, Rate: 125 ml/hr, Infuse over: 8 hr, Route: IV, Dosing Weight 135.199 kg, Total Volume: 1,000, Start date: 02/18/15 12:22:00, Duration: 30 day, Stop date: 03/20/15 12:21:00 No Longer Active 02/18/2015 [facility] Ancef 1 gm, Route: IVPB, ONCE, Dosing Weight 135.199, kg, Start date: 02/18/15 11:40:00, Duration: 1 doses or times, Stop date: 02/18/15 11:40:00 Inactive 02/18/2015 [facility] Ancef 2 gm, Route: IVPB, ONCE, Dosing Weight 135.199, kg, Start date: 02/18/15 9:25:00, Duration: 1 doses or times, Stop date: 02/18/15 9:25:00 Inactive 02/18/2015 [facility] heparin sodium, porcine 2500 UNT/ML Injectable Solution 5,000 unit, 1 mL, Route: SUB-Q, Drug form: INJ, ONCE, Dosing Weight 135.199, kg, Start date: 02/18/15 9:25:00, Stop date: 02/18/15 9:25:00Notes: porcine heparin No Longer Active 02/18/2015 [facility] Calcium Chloride 0.0014 MEQ/ML / Potassium Chloride 0.004 MEQ/ML / Sodium Chloride 0.103 MEQ/ML / Sodium Lactate 0.028 MEQ/ML Injectable Solution 1,000 mL, Rate: 25 ml/hr, Infuse over: 40 hr, Route: IV, Dosing Weight 135.199 kg, Total Volume: 1,000, Start date: 02/17/15 13:55:00, Duration: 2 day, Stop date: 02/19/15 13:54:00 No Longer Active 02/17/2015 [facility] Levothyroxine Sodium 0.2 MG Oral Tablet [Synthroid] 200 microgram=1 tab, PO, Daily, # 30 tab, 0 Refill(s) Active 04/24/2014 [facility] Flumazenil 0.1 mg, Route: IVP, Q5Min, Dosing Weight 132.727, kg, PRN Other -See Comment, Start date: 04/24/14 18:00:00, Duration: 30 day, Stop date: 05/24/14 17:59:00 Inactive 04/24/2014 [facility] Naloxone 0.1 mg, Route: IVP, Q2MIN, Dosing Weight 132.727, kg, PRN Narcotic Reversal, Start date: 04/24/14 18:00:00, Duration: 4 doses or times, Stop date: Limited # of times Inactive 04/24/2014 [facility] Sodium Chloride 0.154 MEQ/ML Injectable Solution 1,000 mL, Rate: 25 ml/hr, Infuse over: 40 hr, Route: IV, Dosing Weight 133.182 kg, Total Volume: 1,000, Start date: 04/24/14 17:20:00, Duration: 30 day, Stop date: 05/24/14 17:19:00 Inactive 04/24/2014 [facility] Magic Mouth Wash (Maalox/Carafate/Bendryl)1:1:1 5 ml, S&SWALLOW, QID, THROAT PAIN, # 120 mL, 0 Refill(s) Active 04/23/2014 [facility] Maalox Advanced Regular Strength SUSP 30 mL, Route: PO, Drug Form: SUSP, Dosing Weight 133.182, kg, ONCE, STAT, Start date: 04/23/14 9:56:00, Stop date: 04/23/14 9:56:00 Inactive 04/23/2014 [facility] Allergies, Adverse Reactions, Alerts Substance Category Reaction Severity Reaction type Status Date Reported Comments Source Immunizations Immunization Date Given Site Status Last Updated Comments Source pneumococcal 23-valent vaccine 02/19/2015 Left deltoid completed Kourtney [facility] Results Order Name Results Value Reference Range Date Interpretation Comments Source Breast Mammo Scrn FIEDL incl CAD MA Breast Mammo Scrn FIDEL incl CAD MA - BREAST MAMMO SCRN FIDEL INCL CAD MA BILATERAL DIGITAL SCREENING MAMMOGRAM WITH CAD: 03/04/2017 CLINICAL: Routine/Screen. Current study was evaluated with a Computer Aided Detection (CAD) system. Comparison is made to exams dated: 01/30/2016 mammogram, 01/07/2015 mammogram and 06/16/2011 mammogram - [facility]. There are scattered fibroglandular densities in both breasts. There is a benign density in the right breast. There also is a benign calcification in the left breast. No significant masses, calcifications, or other findings are seen in either breast. There has been no significant interval change. IMPRESSION: BENIGN There is no mammographic evidence of malignancy. A 1 year screening mammogram is recommended. Esperanza cordovat/penrad:03/04/2017 12:00:54 [employer] Bookkeeper: Benita Flowers, [facility] This exam was dictated and interpreted by [id number] for [facility]. letter sent: Normal exam Mammogram BI-RADS: 2 Benign 03/04/2017 - - Read by: Esperanza Lopez MD Dictated Date/time: 03/04/17 12:00 Electronically Signed by: Esperanza Lopez MD 03/04/17 12:00 FINAL REPORT [facility] Digital Mammo Screening [facility] [place] Digital Mammo Screening Fidel MA - DIGITAL MAMMO SCREENING FIDEL MA BILATERAL DIGITAL SCREENING MAMMOGRAM WITH CAD: 01/30/2016 CLINICAL: Routine. Current study was evaluated with a Computer Aided Detection (CAD) system. Comparison is made to exams dated: 01/07/2015 mammogram and 06/16/2011 mammogram - [facility]. The tissue of both breasts is heterogeneously dense, which could obscure detection of small masses. There is a benign density in the right breast. There also is a benign calcification in the left breast. Both breasts have increased in density due to weight change. No significant masses, calcifications, or other findings are seen in either breast. There has been no significant interval change. IMPRESSION: BENIGN There is no mammographic evidence of malignancy. A 1 year screening mammogram is recommended. Esperanza coleman/jose eduardo:02/02/2016 11:42:45 [employer] Bookkeeper: Benita Flowers, [facility] This exam was dictated and interpreted by [id number] for [facility]. letter sent: Normal exam Mammogram BI-RADS: 2 Benign 01/30/2016 - - Read by: Esperanza Lopez MD Dictated Date/time: 02/02/16 11:42 Electronically Signed by: Esperanza Lopez MD 02/02/16 11:42 FINAL REPORT [facility] ENDOCRINOLOGY S Preg Negative *NA* (03/07/15 12:14 PM) Negative 03/07/2015 [facility] Hysterosalpingography DX Hysterosalpingography DX PROCEDURE: Hysterosalpingography CLINICAL INDICATION: V26.51 Tubal Ligation Status, Essure placed, 12/06. COMPARISON: None. TECHNIQUE: The cervix was accessed via a speculum. The cervix was cleansed with Betadine solution. A catheter was inserted into the uterine cavity at which point 15 cc of contrast was injected. FINDINGS: The uterine cavity is normal, there is no filling defect. Contrast does not progress to the fallopian tubes secondary to the presence of bilateral Essure devices. IMPRESSION: Nonvisualization of the fallopian tubes secondary to the presence of bilateral Essure devices. FLUORO TIME: 48 seconds, 34 mGy. SL: 13 03/07/2015 - - Read by: Kang Tuttle MD Dictated Date/time: 03/07/15 14:11 Electronically Signed by: Kang Tuttle MD 03/07/15 14:15 FINAL REPORT [facility] ELECTROLYTES AGAP 12.9 meq/L 10.0 - 20.0 02/19/2015 [facility] ELECTROLYTES eGFR 109 mL/min/1.73m2 02/19/2015 Result Comment: The eGFR is calculated using the [...] from the National Kidney Disease Education Program (NKDEP) which additionally recommends that when the eGFR is used in patients with extremes of body mass index for purposes of drug dosing, the eGFR should be multiplied by the estimated BMI. [facility] ELECTROLYTES Calcium Lvl 8.5 mg/dL 8.5 - 10.5 02/19/2015 [facility] ELECTROLYTES CO2 25 meq/L 24 - 32 02/19/2015 [facility] ELECTROLYTES Potassium Lvl 3.9 meq/L 3.5 - 5.1 02/19/2015 [facility] ELECTROLYTES Chloride Lvl 99 meq/L 95 - 109 02/19/2015 [facility] ELECTROLYTES Sodium Lvl 133 meq/L 135 - 145 02/19/2015 [facility] ELECTROLYTES BUN 5 mg/dL 7 - 22 02/19/2015 [facility] ELECTROLYTES Creatinine Lvl 0.7 mg/dL 0.5 - 1.4 02/19/2015 [facility] ELECTROLYTES Glucose Lvl 108 mg/dL 70 - 99 02/19/2015 [facility] Basophils 0.1 % 0.0 - 1.0 02/19/2015 [facility] Monocytes 8.7 % 2.0 - 12.0 02/19/2015 [facility] Lymphocytes 11.0 % 20.0 - 40.0 02/19/2015 [facility] Lymphocytes # 1.5 K/CMM 1.0 - 5.5 02/19/2015 [facility] Monocytes # 1.2 K/CMM 0.0 - 0.8 02/19/2015 [facility] Segs-Bands # 11.0 K/CMM 1.5 - 8.1 02/19/2015 [facility] Segs 80.2 % 45.0 - 75.0 02/19/2015 [facility] MPV 8.1 fL 7.4 - 10.4 02/19/2015 [facility] RDW 12.6 % 11.5 - 14.5 02/19/2015 [facility] Platelet 231 K/CMM 133 - 450 02/19/2015 [facility] MCHC 35.6 g/dL 32.0 - 36.0 02/19/2015 [facility] MCH 33.6 pg 27.0 - 31.0 02/19/2015 [facility] Hgb 12.0 g/dL 12.0 - 16.0 02/19/2015 [facility] MCV 94.4 fL 80.0 - 98.0 02/19/2015 [facility] HEMATOLOGY Hct 33.7 % 36.0 - 48.0 02/19/2015 [facility] HEMATOLOGY RBC 3.57 M/CMM 4.20 - 5.40 02/19/2015 [facility] HEMATOLOGY WBC 13.7 K/CMM 3.7 - 10.4 02/19/2015 [facility] Upper GI Series w water soluble DX Upper GI Series w water soluble DX LIMITED UPPER GI FOR EVALUATION OF GASTRIC SLEEVE PROCEDURE. HISTORY: Status post gastric sleeve procedure. Technique: A limited upper GI study was performed for postoperative evaluation following gastric sleeve procedure. The patient was asked to ingest a small amount of water soluble (Omnipaque) contrast material. Fluoroscopy time: 0.7 minutes. Dose: 21 mGy FINDINGS: There is free flow into the stomach. There are normal postoperative changes following gastric sleeve procedure. There is no obstruction. No extravasation was seen. Overall, there is a satisfactory postoperative appearance. SL: 13 Karthikeyan Leigh M.D. 02/19/2015 - - Read by: Karthikeyan Leigh MD Dictated Date/time: 02/19/15 07:56 Electronically Signed by: Karthikeyan Leigh MD 02/19/15 07:58 FINAL REPORT [facility] BLOOD [facility] RESULTS Antibody Scrn Negative (02/17/15 10:37 AM) 02/17/2015 [facility] BLOOD BANK RESULTS ABO/Rh A POS 02/17/2015 [facility] CHEM PANEL B/C Ratio 11 6 - 25 02/17/2015 [facility] CHEM PANEL Globulin 3.7 g/dL 2.0 - 4.0 02/17/2015 [facility] CHEM PANEL A/G Ratio 1.0 0.7 - 1.6 02/17/2015 [facility] CHEM PANEL AGAP 11.4 meq/L 10.0 - 20.0 02/17/2015 [facility] CHEM PANEL Bili Total 0.6 mg/dL 0.2 - 1.3 02/17/2015 [facility] CHEM PANEL CO2 27 meq/L 24 - 32 02/17/2015 [facility] CHEM PANEL AST 16 unit/L 0 - 37 02/17/2015 [facility] CHEM PANEL Alk Phos 73 unit/L 39 - 136 02/17/2015 [facility] CHEM PANEL ALT 34 unit/L 0 - 65 02/17/2015 [facility] CHEM PANEL Glucose Lvl 84 mg/dL 70 - 99 02/17/2015 [facility] CHEM PANEL BUN 9 mg/dL 7 - 22 02/17/2015 [facility] CHEM PANEL Total Protein 7.4 g/dL 6.4 - 8.4 02/17/2015 [facility] CHEM PANEL Albumin Lvl 3.7 g/dL 3.5 - 5.0 02/17/2015 [facility] CHEM PANEL eGFR 93 mL/min/1.73m2 02/17/2015 Result Comment: The eGFR is calculated using the [...] from the National Kidney Disease Education Program (NKDEP) which additionally recommends that when the eGFR is used in patients with extremes of body mass index for purposes of drug dosing, the eGFR should be multiplied by the estimated BMI. [facility] CHEM PANEL Creatinine Lvl 0.8 mg/dL 0.5 - 1.4 02/17/2015 [facility] CHEM PANEL Sodium Lvl 139 meq/L 135 - 145 02/17/2015 [facility] CHEM PANEL Calcium Lvl 8.3 mg/dL 8.5 - 10.5 02/17/2015 [facility] CHEM PANEL Chloride Lvl 104 meq/L 95 - 109 02/17/2015 [facility] CHEM PANEL Potassium Lvl 3.4 meq/L 3.5 - 5.1 02/17/2015 [facility] ENDOCRINOLOGY S Preg Negative *NA* (02/17/15 10:37 AM) Negative 02/17/2015 [facility] HEMATOLOGY Platelet 241 K/CMM 133 - 450 02/17/2015 [facility] HEMATOLOGY MPV 7.8 fL 7.4 - 10.4 02/17/2015 [facility] HEMATOLOGY MCH 32.5 pg 27.0 - 31.0 02/17/2015 [facility] HEMATOLOGY MCHC 34.4 g/dL 32.0 - 36.0 02/17/2015 [facility] HEMATOLOGY RDW 12.6 % 11.5 - 14.5 02/17/2015 [facility] HEMATOLOGY WBC 7.3 K/CMM 3.7 - 10.4 02/17/2015 [facility] HEMATOLOGY Hct 37.8 % 36.0 - 48.0 02/17/2015 [facility] HEMATOLOGY MCV 94.3 fL 80.0 - 98.0 02/17/2015 [facility] HEMATOLOGY RBC 4.01 M/CMM 4.20 - 5.40 02/17/2015 [facility] HEMATOLOGY Hgb 13.0 g/dL 12.0 - 16.0 02/17/2015 [facility] HEMATOLOGY Eosinophils # 0.1 K/CMM 0.0 - 0.5 02/17/2015 [facility] HEMATOLOGY Monocytes # 0.8 K/CMM 0.0 - 0.8 02/17/2015 [facility] HEMATOLOGY Segs-Bands # 3.6 K/CMM 1.5 - 8.1 02/17/2015 [facility] HEMATOLOGY Lymphocytes # 2.7 K/CMM 1.0 - 5.5 02/17/2015 [facility] HEMATOLOGY Basophils 0.5 % 0.0 - 1.0 02/17/2015 [facility] HEMATOLOGY Eosinophils 1.7 % 0.0 - 4.0 02/17/2015 [facility] HEMATOLOGY Monocytes 11.2 % 2.0 - 12.0 02/17/2015 [facility] HEMATOLOGY Segs 49.7 % 45.0 - 75.0 02/17/2015 [facility] Lymphocytes 36.9 % 20.0 - 40.0 02/17/2015 [facility] HEMATOLOGY INR 1.00 0.85 - 1.17 02/17/2015 [facility] HEMATOLOGY PTT 32.3 s 22.9 - 35.8 02/17/2015 [facility] HEMATOLOGY PT 13.2 s 12.0 - 14.7 02/17/2015 [facility] URINE AND STOOL UA RBC 4 /HPF 0 - 2 02/17/2015 [facility] URINE AND STOOL UA Mucus Many /LPF None Seen /LPF 02/17/2015 [facility] URINE AND STOOL UA Nitrite Negative (02/17/15 10:37 AM) Negative 02/17/2015 [facility] URINE AND STOOL UA WBC 3 /HPF 0 - 5 02/17/2015 [facility] URINE AND STOOL UA Leuk Est Negative (02/17/15 10:37 AM) Negative 02/17/2015 [facility] URINE AND STOOL UA Sq Epi Occasional /LPF Few /LPF 02/17/2015 [facility] URINE AND STOOL UA Urobilinogen 4.0 mg/dL 0.1 - 1.0 02/17/2015 [facility] URINE AND STOOL UA Bili Negative *NA* (02/17/15 10:37 AM) Negative 02/17/2015 [facility] URINE AND STOOL UA Ketones Negative mg/dL Negative mg/dL 02/17/2015 [facility] URINE AND STOOL UA Glucose Negative mg/dL Negative mg/dL 02/17/2015 [facility] URINE AND STOOL UA Blood Negative (02/17/15 10:37 AM) Negative 02/17/2015 [facility] URINE AND STOOL UA Spec Grav 1.018 <=1.030 02/17/2015 [facility] URINE AND STOOL UA Protein Negative mg/dL Negative mg/dL 02/17/2015 [facility] URINE AND STOOL UA pH 6.0 5.0 - 8.0 02/17/2015 [facility] URINE AND STOOL UA Turbidity Clear (02/17/15 10:37 AM) Clear 02/17/2015 [facility] URINE AND STOOL UA Color Yellow *NA* (02/17/15 10:37 AM) Yellow 02/17/2015 [facility] Chest 2 views DX Chest 2 views DX TWO-VIEW CHEST: DISCUSSION: No older studies available for comparison. Minimal hypertrophic changes in the spine. The lung parenchyma, pleural spaces, cardiac silhouette, and pulmonary vasculature are normal. Surgical clips in the upper abdomen on the lateral view, side indeterminate. IMPRESSION: No acute disease in the chest. SL: 14 02/07/2015 - - Read by: Arthur Monroe MD Dictated Date/time: 02/07/15 13:47 Electronically Signed by: Arthur Monroe MD 02/07/15 13:48 FINAL REPORT [facility] Digital Mammo Screening [facility] Digital Mammo Screening [place] - DIGITAL MAMMO SCREENING FIDEL [place] BILATERAL DIGITAL SCREENING MAMMOGRAM WITH CAD: 01/07/2015 CLINICAL: Other Screening Mammogram. Current study was evaluated with a Computer Aided Detection (CAD) system. Comparison is made to exam dated: 06/16/2011 mammogram - [facility]. There are scattered fibroglandular densities in both breasts. There is a benign calcification in the left breast. No significant masses, calcifications, or other findings are seen in either breast. There has been no significant interval change. IMPRESSION: BENIGN There is no mammographic evidence of malignancy. A 1 year screening mammogram is recommended. Esperanza coleman/isakrad:01/08/2015 07:40:30 [employer] Bookkeeper: Luna Strickland, [facility] This exam was dictated and interpreted by [id number] for [facility]. letter sent: Normal exam Mammogram BI-RADS: 2 Benign 01/07/2015 - - Read by: Esperanza Lopez MD Dictated Date/time: 01/08/15 07:40 Electronically Signed by: Esperanza Lopez MD 01/08/15 07:40 FINAL REPORT [facility] ELECTROLYTES Potassium Lvl 4.1 meq/L 3.5 - 5.1 10/31/2014 [facility] ELECTROLYTES Chloride Lvl 106 meq/L 95 - 109 10/31/2014 [facility] ELECTROLYTES Sodium Lvl 140 meq/L 135 - 145 10/31/2014 [facility] ELECTROLYTES Calcium Lvl 8.8 mg/dL 8.5 - 10.5 10/31/2014 [facility] ELECTROLYTES eGFR 93 mL/min/1.73m2 10/31/2014 1Result Comment: The eGFR is calculated using [...] from the National Kidney Disease Education Program (NKDEP) which additionally recommends that when the eGFR is used in patients with extremes of body mass index for purposes of drug dosing, the eGFR should be multiplied by the estimated BMI. [facility] ELECTROLYTES CO2 29 meq/L 24 - 32 10/31/2014 [facility] ELECTROLYTES Creatinine Lvl 0.8 mg/dL 0.5 - 1.4 10/31/2014 [facility] ELECTROLYTES BUN 12 mg/dL 7 - 22 10/31/2014 [facility] ELECTROLYTES Alk Phos 76 unit/L 39 - 136 10/31/2014 [facility] ELECTROLYTES AST 60 unit/L 0 - 37 10/31/2014 [facility] ELECTROLYTES ALT 90 unit/L 0 - 65 10/31/2014 [facility] ELECTROLYTES Albumin Lvl 3.3 g/dL 3.5 - 5.0 10/31/2014 [facility] ELECTROLYTES Total Protein 7.4 g/dL 6.4 - 8.4 10/31/2014 [facility] ELECTROLYTES Bili Total 0.2 mg/dL 0.2 - 1.3 10/31/2014 [facility] ELECTROLYTES Glucose Lvl 77 mg/dL 70 - 99 10/31/2014 2Interpretive Data: Adult reference range values reflect the clinical guidelines of the [place] [employer]. [facility] ELECTROLYTES Globulin 4.1 g/dL 2.0 - 4.0 10/31/2014 [facility] ELECTROLYTES B/C Ratio 15 6 - 25 10/31/2014 [facility] ELECTROLYTES AGAP 9.1 meq/L 10.0 - 20.0 10/31/2014 [facility] ELECTROLYTES A/G Ratio 0.8 0.7 - 1.6 10/31/2014 [facility] HEMATOLOGY Monocytes # 0.8 K/CMM 0.0 - 0.8 10/31/2014 [facility] HEMATOLOGY Eosinophils # 0.2 K/CMM 0.0 - 0.5 10/31/2014 [facility] HEMATOLOGY Basophils # 0.1 K/CMM 0.0 - 0.2 10/31/2014 [facility] HEMATOLOGY Segs 51.1 % 45.0 - 75.0 10/31/2014 [facility] HEMATOLOGY Eosinophils 2.4 % 0.0 - 4.0 10/31/2014 [facility] HEMATOLOGY Lymphocytes 35.3 % 20.0 - 40.0 10/31/2014 [facility] HEMATOLOGY Monocytes 10.1 % 2.0 - 12.0 10/31/2014 [facility] HEMATOLOGY Lymphocytes # 2.9 K/CMM 1.0 - 5.5 10/31/2014 [facility] HEMATOLOGY Basophils 1.1 % 0.0 - 1.0 10/31/2014 [facility] Segs-Bands # 4.1 K/CMM 1.5 - 8.1 10/31/2014 [facility] HEMATOLOGY MCV 95.4 fL 80.0 - 98.0 10/31/2014 [facility] HEMATOLOGY Hct 36.9 % 36.0 - 48.0 10/31/2014 [facility] Hgb 12.7 g/dL 12.0 - 16.0 10/31/2014 [facility] MCHC 34.5 g/dL 32.0 - 36.0 10/31/2014 [facility] MCH 32.9 pg 27.0 - 31.0 10/31/2014 [facility] HEMATOLOGY Platelet 239 K/CMM 133 - 450 10/31/2014 [facility] HEMATOLOGY RDW 12.8 % 11.5 - 14.5 10/31/2014 [facility] MPV 8.2 fL 7.4 - 10.4 10/31/2014 [facility] RBC 3.87 M/CMM 4.20 - 5.40 10/31/2014 [facility] WBC 8.1 K/CMM 3.7 - 10.4 10/31/2014 [facility] THYROID PANEL TSH 1.910 uIU/mL 0.360 - 3.740 10/31/2014 [facility] Ext Lower Venous Doppler Bilat US Ext Lower Venous Doppler Bilat US Bilateral Lower Extremity Venous Doppler: CLINICAL HX: Leg pain TECHNIQUE: Clemente scale imaging, compression techniques and spectral analysis were utilized to evaluate the deep venous system of both lower extremities from the inguinal ligament to the popliteal fossa. FINDINGS: Evaluation is limited due to patient's large body habitus. There is adequate compression, respiratory variability, and appropriate response to augmentation in the CFV, FV and popliteal veins in both thighs. Posterior tibial trunk and the saphenous vein demonstrates normal compressibility. The junction of the profunda vein to the SFV is patent. IMPRESSION: Limited study. No definite evidence for deep vein thrombosis in the examined veins of both lower extremities. SL:13 10/29/2014 - - Read by: Mariusz Bartholomew MD Dictated Date/time: 10/29/14 18:22 Electronically Signed by: Mariusz Bartholomew MD 10/29/14 18:23 FINAL REPORT [facility] Pelvis Transvaginal US Pelvis Transvaginal US EXAM: US PELVIS TRANSABDOMINAL EXAM: US PELVIS TRANSVAGINAL DATE: Aug 14, 2014 03:37:27 PM INDICATION: irregular periods COMPARISON: None. TECHNIQUE: Multiplanar grayscale and color Doppler ultrasound images of the pelvis were obtained transabdominally through a distended urinary bladder followed by transvaginal examination postvoid. FINDINGS: Transabdominal Ultrasound: Limited visualization of the urinary bladder is unremarkable. Transvaginal Ultrasound: The uterus is anteverted and measures 8.2 x 4.5 x 6.3 cm. No focal myometrial lesions. Nabothian cysts are identified at the cervix. Endometrial thickness is 5 mm. No focal endometrial lesions. An intrauterine device is in appropriate location. The right ovary is 2.2 x 1.6 x 2.1 cm. The left ovary is 2.4 x 1.7 x 2.8 cm. There is a left ovarian 2.0 x 1.3 x 2.3 cm hypoechoic lesion without internal flow on color Doppler. A simple right ovarian small cyst is seen.. No free fluid identified. IMPRESSION: 1. Intrauterine device identified. 2. Left ovarian 2.3 cm hypoechoic lesion represent a small hemorrhagic cyst versus endometrioma. SL: 13 08/14/2014 - - Read by: Gemini Johnson MD Dictated Date/time: 08/14/14 16:40 Electronically Signed by: Gemini Johnson MD 08/14/14 16:44 FINAL REPORT [facility] URINE CHEM U Preg Negative (04/24/14 5:22 PM) Negative 04/24/2014 [facility] Neck soft tissue DX Neck soft tissue DX SOFT TISSUE NECK RADIOGRAPH 2 VIEW INDICATION: Swallowed foreign body COMPARISON: None FINDINGS: The airway is patent. The epiglottis is normal in size. No aspirated or swallowed radiopaque foreign bodies are visualized. The prevertebral soft tissue is unremarkable. No acute bony abnormalities are seen. IMPRESSION: Unremarkable soft tissue neck radiograph. SL: 16 04/23/2014 - - Read by: Newton Costa MD Dictated Date/time: 04/23/14 08:49 Electronically Signed by: Newton Costa MD 04/23/14 08:50 FINAL REPORT [facility] Abdomen 2 views Abdomen 2 views Examination: Abdomen, 3 views History: Nausea Comparison: None. Findings: Multiple views of the abdomen show a nonobstructive bowel gas pattern. No intraperitoneal free air is seen. Intrauterine device in the pelvis is seen. Surgical clips in the right upper quadrant are noted. Osseous structures are unremarkable. IMPRESSION: Nonobstructive bowel gas pattern. SL: 14 04/23/2014 - - Read by: Arthur Morales MD Dictated Date/time: 04/23/14 08:37 Electronically Signed by: Arthur Morales MD 04/23/14 08:38 FINAL REPORT [facility] Pelvis Transvaginal US Pelvis Transvaginal US TRANSABDOMINAL PELVIC ULTRASOUND; TRANSVAGINAL ULTRASOUND: Transabdominal and transvaginal evaluation of the pelvis was done. The uterus is 8.2 cm in length and 5.3 x 5.5 cm in transverse dimension. The endometrium is 9 mm in thickness. Intrauterine device is noted in the endometrium. There is no evidence of mass or intrauterine .No significant abnormality of the bladder is demonstrated. The right ovary is 3.3 x 2.1 x 2.0 cm in size. The left ovary is 2.7 x 2.1 x 1.9 cm in size. There is a 1.6 cm slightly irregular cyst in the right ovary containing mildly echogenic fluid. A 1 cm simple cyst in the left ovary is noted. There is no evidence of other adnexal masses or free fluid. IMPRESSION: 1. Intrauterine device in satisfactory position. There are no other significant ultrasound abnormalities of the uterus. 2. Small complex right ovarian cyst. 3. Small left ovarian simple cyst versus follicle. SL:13 04/23/2013 - - Read by: Collin Ortez [facility] Date/time: 04/24/13 08:11 Electronically Signed by: Collin Ortez MD 04/24/13 08:16 FINAL REPORT [facility] Vital Signs Vital Sign Value Date Comments Source BMI Calculated 47.3 03/07/2015 [facility] Height 170.18 cm 03/07/2015 [facility] Weight 137 03/07/2015 [facility] Temperature Oral (F) 98.2 F 02/19/2015 [facility] Heart Rate 99 02/19/2015 [facility] Respitory Rate 16 02/19/2015 [facility] Systolic (mm Hg) 119 02/19/2015 [facility] Diastolic (mm Hg) 79 02/19/2015 [facility] Respitory Rate 14 02/19/2015 [facility] Temperature Oral (F) 98.7 F 02/19/2015 [facility] Heart Rate 103 02/19/2015 [facility] Respitory Rate 14 02/19/2015 [facility] Systolic (mm Hg) 121 02/19/2015 [facility] Diastolic (mm Hg) 81 02/19/2015 [facility] Systolic (mm Hg) 117 02/19/2015 [facility] Diastolic (mm Hg) 79 02/19/2015 [facility] Temperature Oral (F) 98.5 F 02/19/2015 [facility] Heart Rate 109 02/19/2015 [facility] Weight 137.273 02/18/2015 [facility] BMI Calculated 47.4 02/18/2015 [facility] Height 170.18 cm 02/18/2015 [facility] Height 170.18 cm 02/17/2015 [facility] BMI Calculated 46.68 02/17/2015 [facility] Weight 135.199 02/17/2015 [facility] Temperature Oral (F) 98.1 F 11/01/2014 [facility] Respitory Rate 16 11/01/2014 [facility] Heart Rate 81 11/01/2014 [facility] Systolic (mm Hg) 117 11/01/2014 [facility] Diastolic (mm Hg) 79 11/01/2014 [facility] Respitory Rate 16 10/31/2014 [facility] Temperature Oral (F) 98.1 F 10/31/2014 [facility] Heart Rate 82 10/31/2014 [facility] Diastolic (mm Hg) 80 10/31/2014 [facility] Systolic (mm Hg) 118 10/31/2014 [facility] Respitory Rate 16 10/31/2014 [facility] Heart Rate 86 10/31/2014 [facility] Systolic (mm Hg) 135 10/31/2014 [facility] Diastolic (mm Hg) 90 10/31/2014 [facility] BMI Calculated 49.65 10/31/2014 [facility] Weight 139.545 10/31/2014 [facility] Temperature Oral (F) 98.0 F 10/31/2014 [facility] Height 167.64 cm 10/31/2014 [facility] Diastolic (mm Hg) 64 04/24/2014 [facility] Systolic (mm Hg) 148 04/24/2014 [facility] Respitory Rate 18 04/24/2014 [facility] Diastolic (mm Hg) 68 04/24/2014 [facility] Systolic (mm Hg) 148 04/24/2014 [facility] Respitory Rate 18 04/24/2014 [facility] Respitory Rate 18 04/24/2014 [facility] Systolic (mm Hg) 143 04/24/2014 [facility] Diastolic (mm Hg) 84 04/24/2014 [facility] BMI Calculated 45.83 04/24/2014 [facility] Height 170.18 cm 04/24/2014 [facility] Weight 132.727 04/24/2014 [facility] Temperature Oral (F) 98.2 F 04/23/2014 [facility] Respitory Rate 18 04/23/2014 [facility] Heart Rate 68 04/23/2014 [facility] Diastolic (mm Hg) 60 04/23/2014 [facility] Systolic (mm Hg) 112 04/23/2014 [facility] Weight 133.182 04/23/2014 [facility] BMI Calculated 45.99 04/23/2014 [facility] Temperature Oral (F) 98.2 F 04/23/2014 [facility] Respitory Rate 16 04/23/2014 [facility] Heart Rate 76 04/23/2014 [facility] Diastolic (mm Hg) 79 04/23/2014 [facility] Systolic (mm Hg) 118 04/23/2014 [facility] Height 170.18 cm 04/23/2014 [facility] Encounters Location Location Details Encounter Type Encounter Number Reason For Visit Attending Provider ADM Date DC Date Status Source [facility] Outpatient [id number] BREAST PAIN AMIR GHEBRANIOUS 06/16/2011 Active [facility] Outpatient [id number] 626.4 TABITHA SHAMBURGER 04/23/2013 Active [facility] [id number] Enid Fritzen 04/23/2014 04/23/2014 [facility] Bedded Outpatient [id number] Joseph Tracie 04/24/2014 04/24/2014 [facility] Outpatient [id number] Kristen Darius 10/29/2014 10/30/2014 [facility] [id number] Jeff Garrett 10/31/2014 11/01/2014 [facility] Outpatient [id number] Tabitha Shamburger 01/07/2015 01/08/2015 [facility] Inpatient [id number] Christiano Nieves 02/18/2015 02/19/2015 [facility] Outpatient [id number] Tabitha Shamburger 03/07/2015 03/08/2015 [facility] Outpatient [id number] Tabitha Shamburger 01/30/2016 01/31/2016 [facility] OP Therapy Patients [id number] Katharine Joshua 03/02/2016 04/01/2016 [facility] Outpatient [id number] Tabitha Shamburger 03/04/2017 03/05/2017 [facility] Outpatient [id number] 626.4 IRREGULAR BLEEDING TABITHA SHAMBURGER Cancel [facility] Procedures Procedure Code Date Perfomer Comments Source Cholecystectomy [id number] [facility] Excision of calcaneal spur [id number] [facility] Operation [id number] [facility] Cholecystectomy [id number] [facility] Excision of calcaneal spur [id number] [facility] Operation [id number] [facility]
[2018-11-14 15:00] VITALS: BP 115/78
--- NOTE | 2018-11-14 20:42 | Operative Report ---
DATE OF PROCEDURE: 11/14/2018 SURGEON: Sandy Williamson DPM PREOPERATIVE DIAGNOSES: 1. Calcaneovalgus. 2. Hallux abductovalgus hypermobile, severe. 3. Gastrocnemius equinus, left. POSTOPERATIVE DIAGNOSES: 1. Calcaneovalgus. 2. Hallux abductovalgus hypermobile, severe. 3. Gastrocnemius equinus, left. PROCEDURES: 1. Mcclure osteotomy with internal fixation of foot. 2. Lapidus bunionectomy with internal fixation, left foot. 3. Gastrocnemius recession of foot. 4. Use of human allograft to augment arthrodesis and prevent adhesions. 5. Re-application of posterior splint. PATHOLOGY: None. ANESTHESIA: General anesthetic. HEMOSTASIS: Pneumatic thigh tourniquet at 350 mmHg. ESTIMATED BLOOD LOSS: Less than 10 mL. MATERIALS: BIO4 5 cc, [place] Mcclure Wedge 10 x 22 x 20, lot #[id number], date of expiration August 16, 2022. wedge for Lapidus bunionectomy 6 x 24 x 14, expiration July 10, 2022, lot #[id number], 4 x 8, lot #[id number], expiration on January 30, 2020. COMPLICATIONS: None. CONDITION: Stable. PROCEDURE IN DETAIL: The patient was brought to the operating room, placed in the supine position. Anesthesia was obtained with general anesthetic and a local block to the left foot. The leg was scrubbed, prepped, and draped in usual aseptic manner. The pneumatic thigh tourniquet was inflated to 350 mmHg and leg was lowered to the table. The patient was positioned in the lateral position in order to perform the first procedure, which was a gastrocnemius recession. Gastrocnemius Recession: Attention was directed to the gastrocnemius aponeurosis where a linear incision was made overlying the aponeurosis. The incision was deepened via sharp and blunt dissection down to the level of the gastrocnemius aponeurosis. Utilizing sharp dissection, a stria type of release was performed in order to decrease the equinus in the contracture at the tendon. The area was then flushed with copious amount of normal sterile saline solution. A piece of allograft was inserted and noted to promote the adhesions at the area and to promote healing. The area was then closed, closing the deepest layer with 4-0 Vicryl and 4-0 nylon. The patient was then placed in the supine position. Attention was then directed to the lateral aspect of the left foot where the calcaneocuboid joint was pinned under the use of intraoperative fluoroscopy. Then, a curvilinear incision was made about 1.5 cm from the joint to the area where the Mcclure osteotomy was going to be performed. There was noted to be sharp and blunt dissection down to the level of the calcaneus. An osteotomy was performed, then the area of the osteotomy was then reflected, taking care to retract or cauterize neurovascular structures as necessary. The osteotomy was performed 1.5 cm from the CC joint, standard Mcclure osteotomy. At this point, different sizes were used. It was noted that 10 mm gave adequate correction. A 10 mm graft was then used and it was secured utilizing the K-wire. There was noted to be adequate alignment and correction clinically with the use of intraoperative fluoroscopy. Lapidus bunionectomy: Attention was then directed to the first metatarsocuneiform joint where a linear incision was made. The incision was deepened via sharp and blunt dissection taking care to retract or cauterize neurovascular structures as necessary. It was deepened down to the level of the capsule. The joint was then exposed utilizing of combination of oscillating saw, bone rongeur, osteotome, and K-wires. The joint was then prepared for arthrodesis. At this point, the graft was then inserted into the arthrodesis site in order to plantar flex the first metatarsal and move the first metatarsal laterally and noted to close a high intermetatarsal angle. Utilizing two beau from [place], the osteotomy was then fixated in adequate alignment clinically with the use of intraoperative fluoroscopy. Attention was then directed first metatarsophalangeal joint where a linear incision was made. Linear capsulotomy was then performed. The sesamoids were then released and noted to free into more anatomical position. Human allograft was then used in order to prevent adhesions and prevent the tendons from adhering down into the capsule and fibrosis to entrap the nerve. The areas were then closed closing the deepest layer with 3-0 Vicryl, 4-0 Vicryl, and 4-0 nylon. Clean dressing was applied consisting of Adaptic ointment, 4 x 4s, Kerlix, and Webril. Posterior splint was applied, it was secured utilizing an Bradley bandage. The tourniquet was deflated. There was noted to be hyperemic response to all the digits. Tourniquet was deflated the first time at 83 minutes, 15 minutes passed and the tourniquet was then reinflated. The first time, the tourniquet was taken down was because it was starting to turn into a venous tourniquet. The patient tolerated procedure and anesthesia well without complication, was transported to recovery room with vital signs stable and vascular status intact to both feet. The patient will be discharged home when she meets criteria. She was given instructions to be strictly nonweightbearing to ice and elevate the foot while at rest and to use Lovenox tonight to begin her pain medicine as instructed. Follow up with me in the office and to call the office if any questions, concerns, or new problems arise. TIMOTHY Knapp/ZAY /[id number]
== END | disposition home or self-care (01) ==
LOC: OR 07:58
PROVIDERS: ATTEND Podiatrist Foot & Ankle Surgery
DX: M20.12 Hallux valgus (acquired), left foot (principal); Q66.4 Congenital talipes calcaneovalgus; M24.575 Contracture, left foot; E03.9 Hypothyroidism, unspecified; R63.4 Abnormal weight loss; Z98.84 Bariatric surgery status
CPT/HCPCS: 27687; 28297; 28300; 81025; J0690; J1100; J1170; J1885; J2001; J2250; J2270; J2405; J2704; J2710; Q4150; C1713

== ENCOUNTER → 2025-02-27 | Day surgery (SDC) | payer OTHER ==
[~2025-02-27] MED LIST changes: +ACETAMINOPHEN 1000 MG/100 ML 100 ML IV ONE; -BACITRACIN 50,000 UNIT VIAL ONE; -BUPIVACAINE HCL 0.5% INJ 30 ML VIAL INJ ONE; -CEFAZOLIN SOD 2 GM/D5W 50ML 50 ML IV ONE; +DEXAMETHASONE SOD PHOS INJ 4 MG/ML SDV ONE; -DEXAMETHASONE SOD PHOS INJ 4 MG/ML VIAL ONE; -EPHEDRINE SULFATE INJ 50 MG/10 ML SYR ONE; +FOLIC ACID0.8 MG; -HYDROMORPHONE 2MG/ML 2 MG/ML ML ONE; -KETOROLAC TROMETHAMINE 30 MG/ML VIAL ONE; +MAGNESIUM; -MIDAZOLAM HCL 2 MG/2 ML VIAL ONE; -MORPHINE SULFATE INJ 10 MG/ML ONE; -NEOSTIGMINE 1 MG/ML 10ML VIAL ONE; +VITAMIN A; +VITAMIN D
[2025-02-27] MEDS: LACTATED RINGER'S 1,000 ML ONE (10:27)
[2025-02-27 13:12] VITALS: TEMP 97.7
[2025-02-27 14:00] VITALS: BP 131/84; PULSE 76; RESP 18; O2SAT 99
== END | disposition home or self-care (01) ==
LOC: OR 10:08
PROVIDERS: ATTEND Podiatrist Foot & Ankle Surgery
DX: Q66.212 Congenital metatarsus primus varus, left foot (principal); S86.312A Strain of muscle(s) and tendon(s) of peroneal muscle group at lower leg level, left leg, initial encounter; S96.812A Strain of other specified muscles and tendons at ankle and foot level, left foot, initial encounter; M65.872 Other synovitis and tenosynovitis, left ankle and foot; E03.9 Hypothyroidism, unspecified; E66.01 Morbid (severe) obesity due to excess calories; X58.XXXA Exposure to other specified factors, initial encounter; Z79.899 Other long term (current) drug therapy; Z86.16 Personal history of COVID-19; Z87.01 Personal history of pneumonia (recurrent)
CPT/HCPCS: 27690; 28200; 28308; 76000; 93005; C1713; J0131; J0690; J1100; J2003; J2405; J2704; J3010; J7121; Q4150